=== PATIENT | male | born 1950 | race Caucasian/White ===

== ENCOUNTER → 2021-05-14 | Outpatient (CLI) | payer MEDICARE | LOC: EXRD 08:21 | DX: D51.9 Vitamin B12 deficiency anemia, unspecified (principal); R16.1 Splenomegaly, not elsewhere classified; D52.9 Folate deficiency anemia, unspecified; R19.5 Other fecal abnormalities; R93.2 Abnormal findings on diagnostic imaging of liver and biliary tract; Z90.49 Acquired absence of other specified parts of digestive tract | CPT/HCPCS: 76700 ==

== ENCOUNTER → 2021-07-17 | Day surgery (SDC) | payer MEDICARE ==
[~2021-07-17] MED LIST: HUMALOG100 UNIT/3 SC; HYDROCODON-ACE1 EAC6 PO; JANUVIA100 MG PO; LANTUS SOL100 UNIT/1 SQ; LISINOPRIL-HCT1 EAC1 PO; METFORMIN HCL1000 MG PO; METHOCARBAMOL500 MG PO; PROTONIX 40 MG40 M1 PO; SIMVASTATIN20 MG PO; STOOL SOFTENER100 MG PO
== END | disposition home or self-care (01) ==
LOC: OR 05:32
PROVIDERS: Surgery
PROC: 0DJ08ZZ Inspection of Upper Intestinal Tract, Via Natural or Artificial Opening Endoscopic (ICD-10-PCS; principal; 2021-07-17 07:30)
PROC: 0DBN8ZX Excision of Sigmoid Colon, Via Natural or Artificial Opening Endoscopic, Diagnostic (ICD-10-PCS; 2021-07-17 07:30)
DX: Z12.11 Encounter for screening for malignant neoplasm of colon (principal); D12.5 Benign neoplasm of sigmoid colon; D50.9 Iron deficiency anemia, unspecified; K57.30 Diverticulosis of large intestine without perforation or abscess without bleeding; I10 Essential (primary) hypertension; E11.9 Type 2 diabetes mellitus without complications; Z20.822 Contact with and (suspected) exposure to COVID-19; Z86.010 Personal history of colon polyps; Z91.041 Radiographic dye allergy status; Z79.2 Long term (current) use of antibiotics; Z79.82 Long term (current) use of aspirin; Z79.899 Other long term (current) drug therapy; Z79.4 Long term (current) use of insulin; Z79.84 Long term (current) use of oral hypoglycemic drugs; Z85.46 Personal history of malignant neoplasm of prostate
CPT/HCPCS: J2704; J7030